=== PATIENT | male | born 1955 | race Caucasian/White ===

== ENCOUNTER 2023-04-09 12:23 | Day surgery (SDC) | payer MEDICARE, OTHER ==
[~2023-04-09] VITALS: Ht 172.8 cm; Wt 72.0 kg
[~2023-04-09 12:23] MED LIST: ALTACE 5MG5 MG PO; ASPIRIN E.C. 8181 MG PO; CRESTOR 10MG10 MG PO; CRESTOR10 MG PO; GLUCOPHAGE XR500 M1 PO; JANUVIA100 MG PO; JARDIANCE10 PO; LAMISIL250 M1 PO; LR 1,000 ML IV SCH; METFORMIN ER500 MG PO; NO HOME MEDICATIONS; RYBELSUS7 MG PO
[2023-04-09 12:39] VITALS: BP 103/63; PULSE 68; TEMP 98.3
[2023-04-09] MEDS ORDERED: 1/2 NS 1,000 ML IV SCH (12:45)
[2023-04-09] MEDS ORDERED: NS Flush 10 ML SYRINGE PRN ICA (12:45)
[2023-04-09 12:58] LABS: BASO % 0.4 % (0.0-2.0); EOS % 0.6 % (0.0-4.0); GRAN # 2.9 K/mm3 (1.4-6.5); GRAN % 58.5 % (42.2-75.2); HEMATOCRIT 44.9 % (42.0-52.0); HEMOGLOBIN 15.9 g/dl (13.5-18.0); LYMPH # 1.3 K/mm3 (1.2-3.4); LYMPH % 25.6 % (20.0-51.0); MEAN CELL VOLUME 94 fl (80.0-100.0); MEAN CORPUSCULAR HEMOGLOBIN 33 pg (27-31); MEAN CORPUSCULAR HGB CONC 35 g/dl (33.0-37.0); MEAN PLATELET VOLUME 10.5 fl (7.4-10.4); MONO # 0.7 K/mm3 (0.1-0.6); MONO % 14.5 % (1.7-9.3); PLATELET COUNT 152 K/mm3 (130-400); RED BLOOD COUNT 4.77 M/mm3 (4.20-5.60); REDCELL DISTRIBUTION WIDTH-CV 13.1 % (11.5-14.5)
[2023-04-09 13:03] LABS: INR 1.1 (0.8-3.0); PROTHROMBIN TIME 12.3 SECONDS (9.7-12.8)
[2023-04-09 13:18] LABS: CALCIUM 10.1 mg/dL (8.4-10.2); CREATININE, serum 1.2 mg/dL (0.72-1.25); POTASSIUM 4.5 mmol/L (3.5-4.5)
[2023-04-09] MEDS ORDERED: Lidocaine PF 2% (20 MG/ML) 5 ML VIAL ONE (13:43)
--- NOTE | 2023-04-09 15:03 | NUR ---
JORDYN NOT PERFORMED PER DR BARRETT DUE TO UNAVAILABLE EQUIPMENT. PROCEDURE RESCHEDULED AND PT FREE FROM CONCERNS AND COMPLAINTS AT TIME OF DISCHARGE. IV DISCONTINUED UPON DISCHARGE.
[2023-04-09] MEDS ORDERED: NS Flush 10 ML SYRINGE BID ICA SCH (21:00)
[2023-04-16] MEDS ORDERED: JARDIANCE25 PO (10:54)
[2023-04-16] MEDS ORDERED: CRESTOR20 MG PO (10:55)
== END 2023-04-09 15:04 | disposition home or self-care (01) ==
LOC: COL.CAR 12:23
PROVIDERS: Internal Medicine Cardiovascular Disease
DX: I34.0 Nonrheumatic mitral (valve) insufficiency (principal); R01.1 Cardiac murmur, unspecified; E78.5 Hyperlipidemia, unspecified; I65.23 Occlusion and stenosis of bilateral carotid arteries; Z53.8 Procedure and treatment not carried out for other reasons
CPT/HCPCS: J2704; J7120